=== PATIENT | male | born 1965 | race Caucasian/White ===

== ENCOUNTER 2021-12-01 14:40 | Emergency (ER) | payer OTHER ==
[2021-12-01] MEDS ORDERED: Ketorolac 30 MG/ML SDV IVPUSH ONE (15:20)
[2021-12-01] MEDS ORDERED: Alum Hydrox/Mag Hydrox/Simeth 30 ML, Lidocaine 2% 15 ML PO ONE ×2 (15:45)
== END 2021-12-01 18:36 | disposition home or self-care (01) ==
LOC: CC.ED 14:40
DX: R07.9 Chest pain, unspecified (principal); I25.10 Atherosclerotic heart disease of native coronary artery without angina pectoris; J45.909 Unspecified asthma, uncomplicated; I10 Essential (primary) hypertension; I25.2 Old myocardial infarction; E11.9 Type 2 diabetes mellitus without complications; E66.9 Obesity, unspecified; Z68.30 Body mass index [BMI] 30.0-30.9, adult; Z79.899 Other long term (current) drug therapy; Z79.82 Long term (current) use of aspirin
CPT/HCPCS: 36415; 71046; 80053; 83690; 84484; 85027; 93005; 96374; 99284; 99285-25; A9270-GY; J1885